=== PATIENT | female | born 1975 | race Caucasian/White ===

== ENCOUNTER 2016-11-25 04:50 | Emergency (ER) | payer MEDICARE, OTHER ==
[~2016-11-25] VITALS: Ht 160 cm; Wt 55.0 kg
[~2016-11-25 04:50] MED LIST: ADV250 IH; ALBU8HFA IH; BUPR-93 PO; CLON1 PO; LAMO200T PO; MONT10TA21 PO; PANT40TA25 PO; RISP1 PO
[2016-11-25 05:07] VITALS: BP 101/74
[2016-11-25] MEDS ORDERED: ALPR1TAB2 PO (19:42)
[2016-11-25] MEDS ORDERED: BUSP30TA2 PO (19:42)
[2016-11-25] MEDS ORDERED: BUPR100 PO (19:42)
[2016-11-25] MEDS ORDERED: LAMO200T PO (19:43)
== END 2016-11-25 06:44 | disposition home or self-care (01) ==
LOC: EMS 04:52
DX: F41.9 Anxiety disorder, unspecified (principal); F31.9 Bipolar disorder, unspecified; J45.909 Unspecified asthma, uncomplicated; F17.210 Nicotine dependence, cigarettes, uncomplicated; F14.90 Cocaine use, unspecified, uncomplicated; F11.90 Opioid use, unspecified, uncomplicated
CPT/HCPCS: 99283

== ENCOUNTER 2016-11-25 18:49 | Inpatient (IN) | payer MEDICARE, OTHER ==
[~2016-11-25] VITALS: Ht 157.5 cm; Wt 49.0 kg
[2016-11-25] MEDS ORDERED: BUSP30TA2 PO (19:42)
[2016-11-25] MEDS ORDERED: BUPR100 PO (19:42)
[2016-11-25] MEDS ORDERED: ALPR1TAB2 PO (19:42)
[2016-11-25] MEDS ORDERED: LAMO200T PO (19:43)
[2016-11-25 20:02] LABS: BASOPHILS % (AUTO) 1.5 % (0.0-2.0); EOSINOPHILS % (AUTO) 3.9 % (1.0-6.0); HEMATOCRIT 40.2 % (36-46); HEMOGLOBIN 13.2 g/dL (12.0-16.0); LYMPHOCYTES # (AUTO) 3.1 K/uL (1.0-4.8); LYMPHOCYTES % (AUTO) 43.5 % (22.0-44.0); MEAN CORPUSCULAR HEMOGLOBIN 32.4 pg (26.0-34.0); MEAN CORPUSCULAR HGB CONC 32.8 G/dL (31.0-37.0); MEAN CORPUSCULAR VOLUME 99 fL (80-100); MONOCYTES # (AUTO) 0.6 K/uL (0.1-1.0); MONOCYTES % (AUTO) 9.1 % (2.0-9.0); PLATELET COUNT (AUTO) 203 K/uL (150-450); RED BLOOD CELL COUNT(AUTO) 4.06 MIL/uL (4.00-5.20); RED CELL DISTRIBUTION WIDTH 13.2 % (11.5-14.5); WHITE BLOOD COUNT (AUTO) 7.1 K/uL (4.5-11.0)
[2016-11-25 20:11] LABS: ANION GAP 8 mmol/L (8-16); CALCIUM, TOTAL 8.6 mg/dL (8.8-10.5); CARBON DIOXIDE 25 mmol/L (22-29); CHLORIDE 106 mmol/L (98-107); CREATININE 0.64 mg/dL (0.60-1.30); GLOMERULAR FILTR. RATE CALC > 60 mL/min (>60); SODIUM SERUM 139 mmol/L (136-145); UREA NITROGEN, BLOOD 21 mg/dL (7-18)
[2016-11-25 20:18] LABS: ALANINE AMINOTRANSFERASE 33 U/L (12-78); ALBUMIN 3.6 g/dL (3.4-5.0); ASPARTATE AMINOTRANSFERASE 25 U/L (15-37); BILIRUBIN,TOTAL 0.3 mg/dL (0.1-1.0); TOTAL PROTEIN, SERUM 6.5 g/dL (6.4-8.2)
[2016-11-25] MEDS ORDERED: ACETAMINOPHEN 500 MG TABLET PO ONE (20:45)
[2016-11-25] MEDS ORDERED: ALBUTEROL SULFATE HFA 90 MCG/PUFF 8 GM INHALER IH ONE (20:45)
[2016-11-25] MEDS ORDERED: HALOPERIDOL 5 MG TABLET PO PRN (22:00)
[2016-11-25] MEDS ORDERED: ZOLPIDEM TARTRATE 10 MG TABLET PO PRN (22:00)
[2016-11-26 01:56] VITALS: BP 124/66
[2016-11-26 08:19] VITALS: BP 153/76
[2016-11-26] MEDS: LORazepam 2 MG TABLET PO PRN ×2 (10:45→20:23)
[2016-11-26] MEDS: NICOTINE 14 MG/24 HOUR PATCH TD SCH (12:30)
[2016-11-26 18:39] VITALS: BP 132/74
[2016-11-26] MEDS: OLANZapine 5 MG TABLET PO SCH (20:43)
[2016-11-26] MEDS ORDERED: ACETAMINOPHEN 325 MG TABLET PO PRN (21:30)
[2016-11-27] MEDS ORDERED: ALBUTEROL SULFATE HFA 90 MCG/PUFF 8 GM INHALER IH SCH
[2016-11-27 07:41] LABS: CHOL/HDL RATIO 2.1 (3.9-5.7)
[2016-11-27 07:48] LABS: HEMOGLOBIN A1C 5.4 % (4.5-6.2)
[2016-11-27 08:14] VITALS: BP 98/60
[2016-11-27] MEDS: OLANZapine 5 MG TABLET PO SCH ×2 (08:24→20:40)
[2016-11-27] MEDS: ALBUTEROL SULFATE HFA 90 MCG/PUFF 8 GM INHALER IH SCH ×3 (08:25→17:11)
[2016-11-27] MEDS: NICOTINE 14 MG/24 HOUR PATCH TD SCH (08:31)
[2016-11-27 12:39] LABS: APPEARANCE,URINE CLEAR (CLEAR); GLUCOSE, URINE (UA) NEGATIVE (NEGATIVE); KETONES,URINE NEGATIVE (NEGATIVE); LEUKOCYTE ESTERASE ,URINE NEGATIVE (NEGATIVE); OCCULT BLOOD,URINE NEGATIVE (NEGATIVE); PROTEIN,URINE NEGATIVE (NEGATIVE)
[2016-11-27 12:41] LABS: ADD UA MICROSCOPIC NO
[2016-11-27] MEDS: LORazepam 2 MG TABLET PO PRN (17:49)
[2016-11-27 18:12] VITALS: BP 101/72
[2016-11-27] MEDS ORDERED: IBUPROFEN 400 MG TABLET PO PRN (23:15)
[2016-11-27] MEDS ORDERED: ACETAMINOPHEN 325 MG TABLET PO PRN (23:15)
[2016-11-28 06:52] LABS: BASOPHILS # (AUTO) 0.09 K/uL (0.00-0.20); BASOPHILS % (AUTO) 1.1 % (0.0-2.0); EOSINOPHILS # (AUTO) 0.08 K/uL (0.00-0.70); EOSINOPHILS % (AUTO) 1.01 % (1.0-6.0); HEMATOCRIT 40.1 % (36-46); HEMOGLOBIN 13.6 g/dL (12.0-16.0); LYMPHOCYTES # (AUTO) 1.8 K/uL (1.0-4.8); LYMPHOCYTES % (AUTO) 23.2 % (22.0-44.0); MEAN CORPUSCULAR HEMOGLOBIN 33.4 pg (26.0-34.0); MEAN CORPUSCULAR HGB CONC 33.8 G/dL (31.0-37.0); MEAN CORPUSCULAR VOLUME 99 fL (80-100); MONOCYTES # (AUTO) 0.6 K/uL (0.1-1.0); MONOCYTES % (AUTO) 7.6 % (2.0-9.0); NEUTROPHILS # (AUTO) 5.2 K/uL (1.8-7.7); NEUTROPHILS % (AUTO) 67.1 % (40.0-70.0); PLATELET COUNT (AUTO) 192 K/uL (150-450); RED BLOOD CELL COUNT(AUTO) 4.06 MIL/uL (4.00-5.20); RED CELL DISTRIBUTION WIDTH 13.1 % (11.5-14.5); WHITE BLOOD COUNT (AUTO) 7.8 K/uL (4.5-11.0)
[2016-11-28 07:03] LABS: HEMOGLOBIN A1C 5.4 % (4.5-6.2)
[2016-11-28 07:10] LABS: ALANINE AMINOTRANSFERASE 22 U/L (12-78); ALBUMIN 3.3 g/dL (3.4-5.0); ANION GAP 7 mmol/L (8-16); ASPARTATE AMINOTRANSFERASE 11 U/L (15-37); BILIRUBIN,TOTAL 0.2 mg/dL (0.1-1.0); CALCIUM, TOTAL 8.8 mg/dL (8.8-10.5); CARBON DIOXIDE 27 mmol/L (22-29); CHLORIDE 105 mmol/L (98-107); CHOL/HDL RATIO 2.3 (3.9-5.7); CREATININE 0.56 mg/dL (0.60-1.30); GLOMERULAR FILTR. RATE CALC > 60 mL/min (>60); POTASSIUM 4.7 mmol/L (3.5-5.1); SODIUM SERUM 139 mmol/L (136-145); THYROID STIMULATING HORMONE 0.97 uIU/mL (0.36-3.74); TOTAL PROTEIN, SERUM 5.9 g/dL (6.4-8.2); UREA NITROGEN, BLOOD 22 mg/dL (7-18)
[2016-11-28 08:20] VITALS: BP 90/63
[2016-11-28] MEDS: OLANZapine 5 MG TABLET PO SCH ×2 (09:20→20:46)
[2016-11-28] MEDS: LamoTRIgine 25 MG TABLET PO SCH (09:20)
[2016-11-28] MEDS: ALBUTEROL SULFATE HFA 90 MCG/PUFF 8 GM INHALER IH SCH ×3 (09:20→17:18)
[2016-11-28 09:25] VITALS: BP 100/62
[2016-11-28] MEDS: IBUPROFEN 400 MG TABLET PO PRN ×2 (09:25→17:27)
[2016-11-28 10:21] VITALS: BP 101/60
[2016-11-28] MEDS: NICOTINE 14 MG/24 HOUR PATCH TD SCH (12:56)
[2016-11-28 16:28] VITALS: BP 101/61
[2016-11-28 17:25] VITALS: BP 109/75
[2016-11-28] MEDS: LORazepam 2 MG TABLET PO PRN (19:44)
[2016-11-29] MEDS: ALBUTEROL SULFATE HFA 90 MCG/PUFF 8 GM INHALER IH SCH ×3 (07:43→16:17)
[2016-11-29] MEDS: OLANZapine 5 MG TABLET PO SCH ×2 (07:43→21:17)
[2016-11-29] MEDS: LamoTRIgine 25 MG TABLET PO SCH (07:43)
[2016-11-29] MEDS: NICOTINE 14 MG/24 HOUR PATCH TD SCH (07:51)
[2016-11-29 08:04] VITALS: BP 94/63
[2016-11-29 13:04] VITALS: BP 133/69
[2016-11-29] MEDS: IBUPROFEN 400 MG TABLET PO PRN (13:04)
[2016-11-29 16:10] VITALS: BP 104/60
[2016-11-29] MEDS: LORazepam 2 MG TABLET PO PRN (19:41)
[2016-11-30] MEDS: OLANZapine 5 MG TABLET PO SCH ×2 (08:00→20:25)
[2016-11-30] MEDS: LamoTRIgine 25 MG TABLET PO SCH (08:00)
[2016-11-30] MEDS: NICOTINE 14 MG/24 HOUR PATCH TD SCH (08:00)
[2016-11-30 08:01] VITALS: BP 100/60
[2016-11-30] MEDS: ALBUTEROL SULFATE HFA 90 MCG/PUFF 8 GM INHALER IH SCH ×3 (08:01→17:31)
[2016-11-30] MEDS: IBUPROFEN 400 MG TABLET PO PRN (08:01)
[2016-11-30] MEDS ORDERED: DiphenhydrAMINE HCL 25 MG CAPSULE PO PRN (11:45)
[2016-11-30] MEDS: DIVALPROEX SODIUM 500 MG DR TABLET PO SCH ×2 (12:32→20:25)
[2016-11-30 17:14] VITALS: BP 104/48
[2016-12-01] MEDS: IBUPROFEN 400 MG TABLET PO PRN ×2 (01:57→11:41)
[2016-12-01 02:08] VITALS: BP 100/59
[2016-12-01 08:01] VITALS: BP 124/68
[2016-12-01] MEDS: ALBUTEROL SULFATE HFA 90 MCG/PUFF 8 GM INHALER IH SCH ×3 (08:59→16:41)
[2016-12-01] MEDS: OLANZapine 5 MG TABLET PO SCH (08:59)
[2016-12-01] MEDS: DIVALPROEX SODIUM 500 MG DR TABLET PO SCH ×2 (09:00→21:53)
[2016-12-01 09:01] VITALS: BP 119/70
[2016-12-01] MEDS: LamoTRIgine 25 MG TABLET PO SCH (09:01)
[2016-12-01] MEDS: NICOTINE 14 MG/24 HOUR PATCH TD SCH (09:02)
[2016-12-01 10:01] VITALS: BP 129/60
[2016-12-01 16:44] VITALS: BP 105/62
[2016-12-02] MEDS: LORazepam 1 MG TABLET PO PRN ×3 (08:07→14:31)
[2016-12-02] MEDS: LamoTRIgine 25 MG TABLET PO SCH (09:31)
[2016-12-02] MEDS: DIVALPROEX SODIUM 500 MG DR TABLET PO SCH ×2 (09:32→22:06)
[2016-12-02] MEDS: NICOTINE 14 MG/24 HOUR PATCH TD SCH (09:32)
[2016-12-02] MEDS: ALBUTEROL SULFATE HFA 90 MCG/PUFF 8 GM INHALER IH SCH ×3 (09:32→17:16)
[2016-12-02] MEDS: BuPROPion HCL XL 150 MG ER TABLET PO SCH (13:30)
[2016-12-02 16:38] VITALS: BP 103/57
[2016-12-02 16:39] VITALS: BP 139/82
[2016-12-03 06:30] VITALS: BP 105/58
[2016-12-03] MEDS: IBUPROFEN 400 MG TABLET PO PRN ×2 (06:48→19:26)
[2016-12-03 08:01] VITALS: BP 100/58
[2016-12-03] MEDS: BuPROPion HCL XL 150 MG ER TABLET PO SCH (08:08)
[2016-12-03] MEDS: ALBUTEROL SULFATE HFA 90 MCG/PUFF 8 GM INHALER IH SCH ×3 (08:08→16:05)
[2016-12-03] MEDS: DIVALPROEX SODIUM 500 MG DR TABLET PO SCH ×2 (08:08→20:06)
[2016-12-03] MEDS: LamoTRIgine 25 MG TABLET PO SCH (08:08)
[2016-12-03] MEDS: LORazepam 1 MG TABLET PO PRN ×2 (08:10→19:25)
[2016-12-03] MEDS: NICOTINE 14 MG/24 HOUR PATCH TD SCH (08:10)
[2016-12-03 16:20] VITALS: BP 95/54
[2016-12-03 19:26] VITALS: BP 112/68
[2016-12-04 08:01] VITALS: BP 95/55
[2016-12-04] MEDS: LamoTRIgine 25 MG TABLET PO SCH (08:49)
[2016-12-04] MEDS: ALBUTEROL SULFATE HFA 90 MCG/PUFF 8 GM INHALER IH SCH ×3 (08:49→16:20)
[2016-12-04] MEDS: BuPROPion HCL XL 150 MG ER TABLET PO SCH (08:49)
[2016-12-04] MEDS: DIVALPROEX SODIUM 500 MG DR TABLET PO SCH ×2 (08:49→21:09)
[2016-12-04] MEDS: NICOTINE 14 MG/24 HOUR PATCH TD SCH (08:55)
[2016-12-04] MEDS: LORazepam 1 MG TABLET PO PRN ×2 (16:28→21:09)
[2016-12-04 19:48] VITALS: BP 115/62
[2016-12-05 08:35] VITALS: BP 92/66
[2016-12-05] MEDS: LamoTRIgine 25 MG TABLET PO SCH (09:14)
[2016-12-05] MEDS: BuPROPion HCL XL 150 MG ER TABLET PO SCH (09:14)
[2016-12-05] MEDS: ALBUTEROL SULFATE HFA 90 MCG/PUFF 8 GM INHALER IH SCH ×2 (09:14→13:01)
[2016-12-05] MEDS: DIVALPROEX SODIUM 500 MG DR TABLET PO SCH (09:14)
[2016-12-05] MEDS: NICOTINE 14 MG/24 HOUR PATCH TD SCH (09:49)
[2016-12-05] MEDS ORDERED: DIVA500T35 PO (10:24)
[2016-12-05] MEDS ORDERED: MAG HYDROX/AL HYDROX/SIMETH ES 30 ML SUSPENSION UDCUP PO PRN (13:00)
== END 2016-12-05 14:00 | disposition home or self-care (01) | DRG 885 ==
LOC: EMS 18:50 → 3EI 22:03 → 3EX 22:03
DX: F31.2 Bipolar disorder, current episode manic severe with psychotic features (principal); R45.851 Suicidal ideations; Z68.1 Body mass index [BMI] 19.9 or less, adult; K90.0 Celiac disease; F17.210 Nicotine dependence, cigarettes, uncomplicated; F14.90 Cocaine use, unspecified, uncomplicated; F12.90 Cannabis use, unspecified, uncomplicated; D64.9 Anemia, unspecified; F15.90 Other stimulant use, unspecified, uncomplicated; F10.20 Alcohol dependence, uncomplicated; J44.9 Chronic obstructive pulmonary disease, unspecified; Z79.899 Other long term (current) drug therapy; Z91.5 Personal history of self-harm; Z59.0 Homelessness; Z71.51 Drug abuse counseling and surveillance of drug abuser; Z71.41 Alcohol abuse counseling and surveillance of alcoholic; Z71.6 Tobacco abuse counseling
CPT/HCPCS: 83036; 84443; 87081; 99285; G0480; J3535

== ENCOUNTER 2019-11-18 13:24 | Emergency (ER) | payer MEDICARE, OTHER ==
[~2019-11-18] VITALS: Ht 157.5 cm; Wt 59.1 kg
[~2019-11-18 13:24] MED LIST changes: -ADV250 IH; -BUPR-93 PO; +BUPR100 PO; -CLON1 PO; +DIVA-78 PO; -MONT10TA21 PO; -PANT40TA25 PO; -RISP1 PO
[2019-11-18] MEDS ORDERED: ACETAMINOPHEN 325 MG TABLET PO ONE (14:30)
[2019-11-18 21:40] VITALS: BP 96/61
== END 2019-11-18 21:50 | disposition home or self-care (01) ==
LOC: EMS 13:27
DX: T74.21XA Adult sexual abuse, confirmed, initial encounter (principal); J45.909 Unspecified asthma, uncomplicated; F31.9 Bipolar disorder, unspecified; F17.210 Nicotine dependence, cigarettes, uncomplicated; F11.90 Opioid use, unspecified, uncomplicated; F12.90 Cannabis use, unspecified, uncomplicated

== ENCOUNTER 2021-01-14 16:45 | Inpatient (IN) | payer MEDICARE ==
[~2021-01-14] VITALS: Ht 154.9 cm; Wt 64.9 kg
[~2021-01-14 16:45] MED LIST changes: +BUPR-121 PO; -BUPR100 PO; +DIVA-112 PO; -DIVA-78 PO
[2021-01-14] MEDS ORDERED: RISP0.5T39 PO (18:53)
[2021-01-14] MEDS ORDERED: SERT-162 PO (18:53)
[2021-01-14] MEDS ORDERED: PNEUMOCOCCAL VACCINE POLYVALENT 0.5 ML VIAL [PPSV23] IM. ONE (19:00)
[2021-01-14] MEDS ORDERED: HALOPERIDOL 5 MG TABLET PO PRN (19:00)
[2021-01-14 19:01] VITALS: BP 109/73
[2021-01-14] MEDS ORDERED: QUEtiapine FUMARATE 100 MG TABLET PO PRN (19:30)
[2021-01-15] MEDS: ZOLPIDEM TARTRATE 10 MG TABLET PO PRN ×2 (00:17→20:53)
[2021-01-15] MEDS: LORazepam 2 MG TABLET PO PRN ×3 (00:52→16:50)
[2021-01-15 01:05] VITALS: BP 111/72
[2021-01-15 07:43] LABS: BASOPHILS % (AUTO) 0.9 % (0.0-2.0); EOSINOPHILS % (AUTO) 0.7 % (1.0-6.0); HEMOGLOBIN 14.2 g/dL (12.0-16.0); LYMPHOCYTES # (AUTO) 2.7 K/uL (1.0-4.8); LYMPHOCYTES % (AUTO) 32.8 % (22.0-44.0); MEAN CORPUSCULAR HEMOGLOBIN 32.7 pg (26.0-34.0); MEAN CORPUSCULAR HGB CONC 33.8 G/dL (31.0-37.0); MEAN CORPUSCULAR VOLUME 97 fL (80-100); MONOCYTES # (AUTO) 0.8 K/uL (0.1-1.0); MONOCYTES % (AUTO) 9.3 % (2.0-9.0); NEUTROPHILS # (AUTO) 4.6 K/uL (1.8-7.7); NEUTROPHILS % (AUTO) 56.3 % (40.0-70.0); PLATELET COUNT (AUTO) 238 K/uL (150-450); RED BLOOD CELL COUNT(AUTO) 4.34 MIL/uL (4.00-5.20); RED CELL DISTRIBUTION WIDTH 12.6 % (11.5-14.5)
[2021-01-15] MEDS ORDERED: MAG HYDROX/AL HYDROX/SIMETH ES 30 ML SUSPENSION UDCUP PO PRN (07:45)
[2021-01-15] MEDS ORDERED: ACETAMINOPHEN 325 MG TABLET PO PRN (07:45)
[2021-01-15] MEDS ORDERED: ONDANSETRON HCL 4 MG TABLET PO PRN (07:45)
[2021-01-15] MEDS ORDERED: IBUPROFEN 400 MG TABLET PO PRN (07:45)
[2021-01-15] MEDS ORDERED: PETROLATUM,WHITE 28 GM JELLY TP PRN (07:45)
[2021-01-15] MEDS ORDERED: DOCUSATE SODIUM 100 MG CAPSULE PO PRN (07:45)
[2021-01-15] MEDS ORDERED: MAGNESIUM HYDROXIDE SUSPENSION 30 ML UDCUP PO PRN (07:45)
[2021-01-15] MEDS ORDERED: LOPERAMIDE HCL 2 MG CAPSULE PO PRN (07:45)
[2021-01-15] MEDS ORDERED: CloNIDine HCL 0.1 MG TABLET PO PRN (07:45)
[2021-01-15] MEDS ORDERED: GuaiFENesin/D-METHORPHAN [SUGAR-FREE] 200-20MG/10 ML SYRUP UDCUP PO PRN (07:45)
[2021-01-15 07:51] LABS: HEMOGLOBIN A1C 5.4 % (3.8-5.6)
[2021-01-15 08:13] LABS: ALANINE AMINOTRANSFERASE 16 U/L (12-78); ALBUMIN 3.7 g/dL (3.4-5.0); ALKALINE PHOSPHATASE 85 U/L (46-116); ANION GAP 11 mmol/L (8-16); ASPARTATE AMINOTRANSFERASE 11 U/L (15-37); BILIRUBIN,TOTAL 0.5 mg/dL (0.1-1.0); CARBON DIOXIDE 29 mmol/L (22-29); CHLORIDE 103 mmol/L (98-107); CHOL/HDL RATIO 2.8 (3.9-5.7); CHOLESTEROL 149 mg/dL (131-200); CREATININE 0.62 mg/dL (0.60-1.30); FREE T4 (FREE THYROXINE) 1.15 ng/dL (0.76-1.46); GLOMERULAR FILTR. RATE CALC > 60 mL/min (>60); GLUCOSE,RANDOM 68 mg/dL (70-110); HDL CHOLESTEROL 53 mg/dL (40-60); LDL CHOL (CALC.) 85 mg/dL (0-130); POTASSIUM 4.3 mmol/L (3.5-5.1); SODIUM SERUM 143 mmol/L (136-145); THYROID STIMULATING HORMONE 1.62 uIU/mL (0.36-3.74); TOTAL PROTEIN, SERUM 7.3 g/dL (6.4-8.2); TRIGLYCERIDES 55 mg/dL (15-150); UREA NITROGEN, BLOOD 21 mg/dL (7-18)
[2021-01-15 08:30] VITALS: BP 108/67
[2021-01-15] MEDS ORDERED: IBUPROFEN 800 MG TABLET PO PRN (11:00)
[2021-01-15] MEDS: MONTELUKAST SODIUM 10 MG TABLET PO SCH (12:43)
[2021-01-15] MEDS ORDERED: MetroNIDAZOLE 500 MG TABLET PO ONE (15:15)
[2021-01-15 16:45] VITALS: BP 101/67
[2021-01-15] MEDS: NICOTINE 14 MG/24 HOUR PATCH TD PRN (17:31)
[2021-01-15] MEDS: SERTRALINE HCL 100 MG TABLET PO SCH (19:38)
[2021-01-15] MEDS: RisperiDONE 0.5 MG TABLET PO SCH (20:53)
[2021-01-15] MEDS: BUDESONIDE 180 MCG/INH INHALER [120] IH SCH (20:53)
[2021-01-15] MEDS: ALBUTEROL SULFATE HFA 90 MCG/PUFF 8 GM INHALER IH PRN (20:54)
[2021-01-16 06:00] VITALS: BP 113/74
[2021-01-16] MEDS: BUDESONIDE 180 MCG/INH INHALER [120] IH SCH ×2 (08:47→20:39)
[2021-01-16] MEDS: MONTELUKAST SODIUM 10 MG TABLET PO SCH (08:47)
[2021-01-16] MEDS: SERTRALINE HCL 100 MG TABLET PO SCH (08:53)
[2021-01-16 10:17] VITALS: BP 100/56
[2021-01-16] MEDS: DULoxetine HCL 20 MG CAPSULE PO SCH (14:02)
[2021-01-16 16:18] VITALS: BP 101/68
[2021-01-16] MEDS: BusPIRone HCL 15 MG TABLET PO SCH (16:57)
[2021-01-16] MEDS: RisperiDONE 0.5 MG TABLET PO SCH (20:25)
[2021-01-17 06:17] VITALS: BP 113/62
[2021-01-17 08:32] VITALS: BP 100/62
[2021-01-17] MEDS: DULoxetine HCL 20 MG CAPSULE PO SCH (08:40)
[2021-01-17] MEDS: MONTELUKAST SODIUM 10 MG TABLET PO SCH (08:40)
[2021-01-17] MEDS: LORazepam 2 MG TABLET PO PRN ×2 (08:40→16:25)
[2021-01-17] MEDS: BusPIRone HCL 15 MG TABLET PO SCH ×3 (08:40→16:12)
[2021-01-17] MEDS: SERTRALINE HCL 100 MG TABLET PO SCH (09:00)
[2021-01-17] MEDS: BUDESONIDE 180 MCG/INH INHALER [120] IH SCH ×2 (09:00→20:43)
[2021-01-17 16:13] VITALS: BP 100/60
[2021-01-17] MEDS: RisperiDONE 0.5 MG TABLET PO SCH (20:43)
[2021-01-17] MEDS: ZOLPIDEM TARTRATE 10 MG TABLET PO PRN (20:49)
[2021-01-18 00:58] VITALS: BP 111/64
[2021-01-18] MEDS: BusPIRone HCL 15 MG TABLET PO SCH ×3 (09:18→16:44)
[2021-01-18] MEDS: DULoxetine HCL 20 MG CAPSULE PO SCH (09:18)
[2021-01-18] MEDS: LORazepam 2 MG TABLET PO PRN (09:18)
[2021-01-18] MEDS: BUDESONIDE 180 MCG/INH INHALER [120] IH SCH ×2 (09:52→21:26)
[2021-01-18] MEDS: MONTELUKAST SODIUM 10 MG TABLET PO SCH (09:52)
[2021-01-18] MEDS: SERTRALINE HCL 100 MG TABLET PO SCH (09:53)
[2021-01-18 16:22] VITALS: BP 99/66
[2021-01-18] MEDS: ZOLPIDEM TARTRATE 10 MG TABLET PO PRN (20:46)
[2021-01-18] MEDS: RisperiDONE 0.5 MG TABLET PO SCH (20:46)
[2021-01-19 04:29] VITALS: BP 105/67
[2021-01-19 08:22] VITALS: BP 100/59
[2021-01-19] MEDS: SERTRALINE HCL 100 MG TABLET PO SCH (09:25)
[2021-01-19] MEDS: BusPIRone HCL 15 MG TABLET PO SCH ×3 (09:25→16:33)
[2021-01-19] MEDS: BUDESONIDE 180 MCG/INH INHALER [120] IH SCH ×2 (09:25→21:23)
[2021-01-19] MEDS: DULoxetine HCL 20 MG CAPSULE PO SCH (09:25)
[2021-01-19] MEDS: MONTELUKAST SODIUM 10 MG TABLET PO SCH (09:25)
[2021-01-19 10:00] VITALS: BP 116/74
[2021-01-19] MEDS: LORazepam 2 MG TABLET PO PRN (10:11)
[2021-01-19 16:16] VITALS: BP 106/70
[2021-01-19] MEDS: RisperiDONE 0.5 MG TABLET PO SCH (21:22)
[2021-01-20 05:33] VITALS: BP 114/72
[2021-01-20 08:10] VITALS: BP 119/66
[2021-01-20] MEDS: MONTELUKAST SODIUM 10 MG TABLET PO SCH (08:24)
[2021-01-20] MEDS: BusPIRone HCL 15 MG TABLET PO SCH ×3 (08:24→16:01)
[2021-01-20] MEDS: SERTRALINE HCL 100 MG TABLET PO SCH (08:24)
[2021-01-20] MEDS: DULoxetine HCL 20 MG CAPSULE PO SCH (08:24)
[2021-01-20] MEDS: BUDESONIDE 180 MCG/INH INHALER [120] IH SCH ×2 (08:25→19:35)
[2021-01-20] MEDS: LORazepam 2 MG TABLET PO PRN (13:57)
[2021-01-20 16:11] VITALS: BP 102/69
[2021-01-20] MEDS: RisperiDONE 0.5 MG TABLET PO SCH (21:32)
[2021-01-21 05:18] VITALS: BP 108/72
[2021-01-21 08:18] VITALS: BP 110/72
[2021-01-21] MEDS: BusPIRone HCL 15 MG TABLET PO SCH ×3 (08:30→15:58)
[2021-01-21] MEDS: SERTRALINE HCL 100 MG TABLET PO SCH (08:30)
[2021-01-21] MEDS: MONTELUKAST SODIUM 10 MG TABLET PO SCH (08:30)
[2021-01-21] MEDS: BUDESONIDE 180 MCG/INH INHALER [120] IH SCH ×2 (08:31→20:26)
[2021-01-21] MEDS: DULoxetine HCL 20 MG CAPSULE PO SCH (08:31)
[2021-01-21] MEDS: LORazepam 2 MG TABLET PO PRN ×2 (08:35→13:32)
[2021-01-21] MEDS: NICOTINE 14 MG/24 HOUR PATCH TD PRN (12:53)
[2021-01-21] MEDS: LamoTRIgine 25 MG TABLET PO SCH (15:58)
[2021-01-21 16:24] VITALS: BP 90/65
[2021-01-21] MEDS: RisperiDONE 0.5 MG TABLET PO SCH (20:26)
[2021-01-21] MEDS: ZOLPIDEM TARTRATE 10 MG TABLET PO PRN (20:31)
[2021-01-22 04:56] VITALS: BP 103/59
[2021-01-22 08:27] VITALS: BP 103/68
[2021-01-22] MEDS: MONTELUKAST SODIUM 10 MG TABLET PO SCH (08:31)
[2021-01-22] MEDS: DULoxetine HCL 20 MG CAPSULE PO SCH (08:31)
[2021-01-22] MEDS: LamoTRIgine 25 MG TABLET PO SCH ×2 (08:31→17:10)
[2021-01-22] MEDS: BusPIRone HCL 15 MG TABLET PO SCH ×3 (08:31→17:10)
[2021-01-22] MEDS: BUDESONIDE 180 MCG/INH INHALER [120] IH SCH ×2 (08:33→20:28)
[2021-01-22] MEDS: SERTRALINE HCL 100 MG TABLET PO SCH (08:33)
[2021-01-22 09:00] VITALS: BP 108/74
[2021-01-22] MEDS: LORazepam 2 MG TABLET PO PRN (09:06)
[2021-01-22] MEDS: NICOTINE 14 MG/24 HOUR PATCH TD PRN (12:15)
[2021-01-22 17:30] VITALS: BP 95/77
[2021-01-22] MEDS: RisperiDONE 0.5 MG TABLET PO SCH (20:28)
[2021-01-22] MEDS: ZOLPIDEM TARTRATE 10 MG TABLET PO PRN (20:39)
[2021-01-23 00:55] VITALS: BP 96/65
[2021-01-23] MEDS: SERTRALINE HCL 100 MG TABLET PO SCH (08:02)
[2021-01-23] MEDS: BUDESONIDE 180 MCG/INH INHALER [120] IH SCH ×2 (08:02→20:22)
[2021-01-23] MEDS: DULoxetine HCL 20 MG CAPSULE PO SCH (08:02)
[2021-01-23] MEDS: LamoTRIgine 25 MG TABLET PO SCH ×2 (08:02→17:26)
[2021-01-23] MEDS: BusPIRone HCL 15 MG TABLET PO SCH ×3 (08:02→17:26)
[2021-01-23] MEDS: MONTELUKAST SODIUM 10 MG TABLET PO SCH (08:03)
[2021-01-23 09:15] VITALS: BP 90/68
[2021-01-23] MEDS: NICOTINE 14 MG/24 HOUR PATCH TD PRN (14:24)
[2021-01-23 16:16] VITALS: BP 128/75
[2021-01-23 16:18] VITALS: BP 97/69
[2021-01-23] MEDS: ZOLPIDEM TARTRATE 10 MG TABLET PO PRN (20:22)
[2021-01-23] MEDS: RisperiDONE 0.5 MG TABLET PO SCH (20:22)
[2021-01-24 06:12] VITALS: BP 130/53
[2021-01-24] MEDS: MONTELUKAST SODIUM 10 MG TABLET PO SCH (08:37)
[2021-01-24] MEDS: DULoxetine HCL 20 MG CAPSULE PO SCH (08:37)
[2021-01-24] MEDS: SERTRALINE HCL 100 MG TABLET PO SCH (08:37)
[2021-01-24] MEDS: LamoTRIgine 25 MG TABLET PO SCH ×2 (08:37→17:00)
[2021-01-24] MEDS: BusPIRone HCL 15 MG TABLET PO SCH ×3 (08:37→17:23)
[2021-01-24] MEDS: BUDESONIDE 180 MCG/INH INHALER [120] IH SCH ×2 (08:38→22:48)
[2021-01-24 10:30] VITALS: BP 95/66
[2021-01-24] MEDS: NICOTINE 14 MG/24 HOUR PATCH TD PRN (14:17)
[2021-01-24 17:02] VITALS: BP 97/64
[2021-01-24] MEDS: RisperiDONE 0.5 MG TABLET PO SCH (20:53)
[2021-01-24] MEDS: ZOLPIDEM TARTRATE 10 MG TABLET PO PRN (21:03)
[2021-01-25 06:08] VITALS: BP 126/76
[2021-01-25 08:22] VITALS: BP 111/71
[2021-01-25] MEDS: BusPIRone HCL 15 MG TABLET PO SCH ×3 (09:18→16:27)
[2021-01-25] MEDS: SERTRALINE HCL 100 MG TABLET PO SCH (09:18)
[2021-01-25] MEDS: MONTELUKAST SODIUM 10 MG TABLET PO SCH (09:19)
[2021-01-25] MEDS: DULoxetine HCL 20 MG CAPSULE PO SCH (09:19)
[2021-01-25] MEDS: LamoTRIgine 25 MG TABLET PO SCH ×2 (09:19→16:27)
[2021-01-25] MEDS: BUDESONIDE 180 MCG/INH INHALER [120] IH SCH ×2 (09:20→19:14)
[2021-01-25 16:18] VITALS: BP 106/62
[2021-01-25] MEDS: ZOLPIDEM TARTRATE 10 MG TABLET PO PRN (19:00)
[2021-01-25] MEDS: RisperiDONE 0.5 MG TABLET PO SCH (19:00)
[2021-01-25] MEDS: LORazepam 2 MG TABLET PO PRN (22:08)
[2021-01-26 06:00] VITALS: BP 110/70
[2021-01-26 08:19] VITALS: BP 108/57
[2021-01-26] MEDS: NICOTINE 14 MG/24 HOUR PATCH TD PRN (08:27)
[2021-01-26] MEDS: BusPIRone HCL 15 MG TABLET PO SCH ×3 (08:48→16:08)
[2021-01-26] MEDS: SERTRALINE HCL 100 MG TABLET PO SCH (08:48)
[2021-01-26] MEDS: LamoTRIgine 25 MG TABLET PO SCH ×2 (08:48→16:07)
[2021-01-26] MEDS: MONTELUKAST SODIUM 10 MG TABLET PO SCH (08:48)
[2021-01-26] MEDS: DULoxetine HCL 20 MG CAPSULE PO SCH (08:52)
[2021-01-26] MEDS: BUDESONIDE 180 MCG/INH INHALER [120] IH SCH ×2 (08:54→19:16)
[2021-01-26] MEDS: ALBUTEROL SULFATE HFA 90 MCG/PUFF 8 GM INHALER IH PRN (09:01)
[2021-01-26] MEDS: LORazepam 2 MG TABLET PO PRN (16:08)
[2021-01-26 16:16] VITALS: BP 103/68
[2021-01-26] MEDS: HydrOXYzine HCL 50 MG TABLET PO SCH (19:16)
[2021-01-26] MEDS: RisperiDONE 0.5 MG TABLET PO SCH (19:16)
[2021-01-26] MEDS: ZOLPIDEM TARTRATE 10 MG TABLET PO PRN (19:16)
[2021-01-27 05:37] VITALS: BP 106/61
[2021-01-27 08:16] VITALS: BP 100/61
[2021-01-27] MEDS: MONTELUKAST SODIUM 10 MG TABLET PO SCH (08:46)
[2021-01-27] MEDS: LamoTRIgine 25 MG TABLET PO SCH ×2 (08:46→16:51)
[2021-01-27] MEDS: DULoxetine HCL 30 MG CAPSULE PO SCH (08:46)
[2021-01-27] MEDS: BUDESONIDE 180 MCG/INH INHALER [120] IH SCH ×2 (08:46→21:04)
[2021-01-27] MEDS: BusPIRone HCL 15 MG TABLET PO SCH ×2 (08:46→16:51)
[2021-01-27] MEDS: SERTRALINE HCL 100 MG TABLET PO SCH (08:46)
[2021-01-27] MEDS: LORazepam 2 MG TABLET PO PRN ×2 (16:51→21:05)
[2021-01-27 19:12] VITALS: BP 100/63
[2021-01-27] MEDS: RisperiDONE 0.5 MG TABLET PO SCH (21:04)
[2021-01-27] MEDS: ZOLPIDEM TARTRATE 10 MG TABLET PO PRN (21:05)
[2021-01-27] MEDS: HydrOXYzine HCL 50 MG TABLET PO SCH (21:05)
[2021-01-28 04:53] VITALS: BP 104/60
[2021-01-28] MEDS: BUDESONIDE 180 MCG/INH INHALER [120] IH SCH ×2 (08:15→20:31)
[2021-01-28] MEDS: MONTELUKAST SODIUM 10 MG TABLET PO SCH (08:15)
[2021-01-28] MEDS: DULoxetine HCL 30 MG CAPSULE PO SCH (08:16)
[2021-01-28] MEDS: LamoTRIgine 25 MG TABLET PO SCH ×2 (08:16→17:01)
[2021-01-28] MEDS: SERTRALINE HCL 100 MG TABLET PO SCH (08:16)
[2021-01-28] MEDS: BusPIRone HCL 15 MG TABLET PO SCH ×2 (08:16→17:01)
[2021-01-28 08:37] VITALS: BP 121/66
[2021-01-28] MEDS: NICOTINE 14 MG/24 HOUR PATCH TD PRN (13:59)
[2021-01-28 16:18] VITALS: BP 94/63
[2021-01-28] MEDS: HydrOXYzine HCL 50 MG TABLET PO SCH (20:31)
[2021-01-28] MEDS: ZOLPIDEM TARTRATE 10 MG TABLET PO PRN (20:31)
[2021-01-28] MEDS: RisperiDONE 0.5 MG TABLET PO SCH (20:31)
[2021-01-29 05:27] VITALS: BP 110/63
[2021-01-29 08:23] VITALS: BP 117/68
[2021-01-29] MEDS: BUDESONIDE 180 MCG/INH INHALER [120] IH SCH ×2 (10:11→20:52)
[2021-01-29] MEDS: LamoTRIgine 25 MG TABLET PO SCH ×2 (10:12→17:04)
[2021-01-29] MEDS: BusPIRone HCL 15 MG TABLET PO SCH ×2 (10:12→17:04)
[2021-01-29] MEDS: DULoxetine HCL 30 MG CAPSULE PO SCH (10:12)
[2021-01-29] MEDS: MONTELUKAST SODIUM 10 MG TABLET PO SCH (10:12)
[2021-01-29] MEDS: SERTRALINE HCL 100 MG TABLET PO SCH (10:28)
[2021-01-29 16:19] VITALS: BP 98/62
[2021-01-29] MEDS: RisperiDONE 0.5 MG TABLET PO SCH (20:52)
[2021-01-29] MEDS: HydrOXYzine HCL 50 MG TABLET PO SCH (20:52)
[2021-01-29] MEDS: ZOLPIDEM TARTRATE 10 MG TABLET PO PRN (20:59)
[2021-01-30 05:07] VITALS: BP 106/62
[2021-01-30] MEDS: BUDESONIDE 180 MCG/INH INHALER [120] IH SCH ×2 (09:12→20:53)
[2021-01-30] MEDS: LamoTRIgine 25 MG TABLET PO SCH ×2 (09:15→15:56)
[2021-01-30] MEDS: MONTELUKAST SODIUM 10 MG TABLET PO SCH (09:16)
[2021-01-30] MEDS: DULoxetine HCL 30 MG CAPSULE PO SCH (09:16)
[2021-01-30] MEDS: SERTRALINE HCL 100 MG TABLET PO SCH (09:16)
[2021-01-30] MEDS: BusPIRone HCL 15 MG TABLET PO SCH ×2 (09:16→15:56)
[2021-01-30 09:33] VITALS: BP 100/66
[2021-01-30] MEDS: NICOTINE 14 MG/24 HOUR PATCH TD PRN (15:54)
[2021-01-30 16:18] VITALS: BP 98/69
[2021-01-30] MEDS: HydrOXYzine HCL 50 MG TABLET PO SCH (20:53)
[2021-01-30] MEDS: RisperiDONE 0.5 MG TABLET PO SCH (20:53)
[2021-01-30] MEDS: ZOLPIDEM TARTRATE 10 MG TABLET PO PRN (21:56)
[2021-01-31 00:14] VITALS: BP 99/67
[2021-01-31 08:28] VITALS: BP 109/65
[2021-01-31] MEDS: SERTRALINE HCL 100 MG TABLET PO SCH (09:28)
[2021-01-31] MEDS: LamoTRIgine 25 MG TABLET PO SCH ×2 (09:28→16:36)
[2021-01-31] MEDS: MONTELUKAST SODIUM 10 MG TABLET PO SCH (09:29)
[2021-01-31] MEDS: BUDESONIDE 180 MCG/INH INHALER [120] IH SCH ×2 (09:29→20:17)
[2021-01-31] MEDS: BusPIRone HCL 15 MG TABLET PO SCH ×2 (09:29→16:36)
[2021-01-31] MEDS: DULoxetine HCL 30 MG CAPSULE PO SCH (09:29)
[2021-01-31 16:14] VITALS: BP 98/65
[2021-01-31] MEDS: HydrOXYzine HCL 50 MG TABLET PO SCH (20:17)
[2021-01-31] MEDS: RisperiDONE 0.5 MG TABLET PO SCH (20:17)
[2021-01-31] MEDS: ZOLPIDEM TARTRATE 10 MG TABLET PO PRN (20:19)
[2021-02-01] MEDS: ALBUTEROL SULFATE HFA 90 MCG/PUFF 8 GM INHALER IH PRN ×2 (00:18→08:54)
[2021-02-01] MEDS: LORazepam 2 MG TABLET PO PRN (00:19)
[2021-02-01 04:55] VITALS: BP 113/71
[2021-02-01 08:27] VITALS: BP 100/60
[2021-02-01] MEDS: LamoTRIgine 25 MG TABLET PO SCH (08:50)
[2021-02-01] MEDS: BusPIRone HCL 15 MG TABLET PO SCH (08:50)
[2021-02-01] MEDS: MONTELUKAST SODIUM 10 MG TABLET PO SCH (08:51)
[2021-02-01] MEDS: DULoxetine HCL 30 MG CAPSULE PO SCH (08:51)
[2021-02-01] MEDS: SERTRALINE HCL 100 MG TABLET PO SCH (08:51)
[2021-02-01] MEDS: BUDESONIDE 180 MCG/INH INHALER [120] IH SCH (08:51)
[2021-02-01] MEDS: NICOTINE 14 MG/24 HOUR PATCH TD PRN (08:59)
[2021-02-01] MEDS ORDERED: DULO30CA96 PO (14:33)
[2021-02-01] MEDS ORDERED: BUSP15 PO (14:33)
[2021-02-01] MEDS ORDERED: HYD50 PO (14:33)
[2021-02-01] MEDS ORDERED: LAMO25TA25 PO (14:33)
[2021-02-01] MEDS ORDERED: BUDE180H IH (14:35)
== END 2021-02-01 13:15 | disposition home or self-care (01) | DRG 885 ==
LOC: B3A 18:24
PROVIDERS: ADMIT Psychiatry & Neurology Child & Adolescent Psychiatry; ATTEND Psychiatry & Neurology Child & Adolescent Psychiatry
DX: F25.1 Schizoaffective disorder, depressive type (principal); R45.851 Suicidal ideations; J45.909 Unspecified asthma, uncomplicated; F10.10 Alcohol abuse, uncomplicated; K90.0 Celiac disease; Z59.0 Homelessness; Z91.14 Patient's other noncompliance with medication regimen; F41.9 Anxiety disorder, unspecified; Z20.822 Contact with and (suspected) exposure to COVID-19
CPT/HCPCS: 80053; 80061; 83036; 84439; 84443; 84702; 85025; J3535